=== PATIENT | female | born 1975 | race African-American/Black ===

== ENCOUNTER 2016-08-22 00:49 | Observation (INO) ==
[2016-08-22] MEDS ORDERED: ENOXAPARIN 100 MG/ML SYRINGE SUBCUT STA (01:15)
[2016-08-22] MEDS ORDERED: NITROGLYCERIN 2% OINT 1 INCH/GM PACK TOP STA (01:15)
[2016-08-22] MEDS ORDERED: MORPHINE 2 MG/1 ML SYRINGE IV STA (01:15)
[2016-08-22] MEDS ORDERED: ASPIRIN 325 MG TABLET PO STA (01:15)
[2016-08-22] MEDS ORDERED: ONDANSETRON 4 MG/2 ML VIAL IV STA (01:15)
[2016-08-22] MEDS ORDERED: SODIUM CHLORIDE 0.9% 500 ML IV STA (01:15)
--- NOTE | 2016-08-22 01:19 | EKG Report ---
Stationary ECG Study [facility] ER Test Date: 08/22/2016 12:57:29 AM Pat Name: LINCOLN TARANGO Department: Room: Gender: F Table Worker Packager: Delores : 1975 Requested by: Lg Handy Order Number: [id number] Reading MD: LON NIETO Intervals [place] Rate: 87 P: 62 UT: 142 QRS: 47 QRSD: 67 T: 56 QT: 328 QTc: 372 Interpretive Statements SINUS RHYTHM Electronically Signed On 08-22-16 04:11:34 SOCIAL SCIENTIST by LON NIETO [email or web address]
[2016-08-22] MEDS ORDERED: NITROGLYCERIN 2% OINT 1 INCH/GM PACK TOP ONE (01:28)
[2016-08-22] MEDS ORDERED: ENOXAPARIN 80 MG/0.8 ML SYRINGE SUBCUT ONE (01:29)
[2016-08-22] MEDS ORDERED: ONDANSETRON 4 MG/2 ML VIAL ONE (01:29)
[2016-08-22] MEDS ORDERED: MORPHINE 2 MG/1 ML SYRINGE ONE (01:29)
[2016-08-22] MEDS ORDERED: ASPIRIN 325 MG TABLET ONE (01:29)
[2016-08-22 01:43] LABS: PT Patient Result 10.5 SECS
[2016-08-22 01:46] LABS: Basophils # 0.1 10*3/uL (0.0-0.2); Basophils % 1.1 % (0.0-0.8); Eosinophils # 0.1 10*3/uL (0.0-0.87); Eosinophils % 2.6 % (0.00-10.9); Hematocrit 37.5 VOL% (35.7-47.0); Hemoglobin 12.2 GM/DL (12.0-16.0); Immature Granulocytes % 0.2 %; Immature Granulocytes Absolute 0.01 #; Lymphocytes # 1.9 10*3/uL (1.4-4.0); Lymphocytes % 42.3 % (21.3-54.2); Mean Corpuscular HGB Conc 32.5 GM/DL (32-36); Mean Corpuscular Hemoglobin 28 PG (27-34); Mean Corpuscular Volume 85.6 FL (87-102); Mean Platelet Volume 10.8 FL (9.6-12.0); Monocytes # 0.5 10*3/uL (0.11-0.8); Monocytes % 11.1 % (1.7-12.7); Neutrophils % 42.7 % (38.7-73.9); Platelet Count 211 10*3/uL (130-400); Red Blood Count 4.38 10*6/uL (3.8-5.5); Red Cell Distribution Width 13.3 % (9.3-17.3); White Blood Count 4.6 10*3/uL (4.5-13.71)
--- NOTE | 2016-08-22 01:47 | Emergency Department Note ---
IJavi Sierra, am scribing for, and in the presence of, Lg Handy MD 01:12. Ole Peacock Robert M, MD, personally performed the services described in this documentation, ascribed by Bridgett Caldwell in my presence, and it is both accurate and complete . Arrival - Arrival ED Nursing Triage Note: C/O SOB, left arm numbness, and chest discomfort starting yesterday. Mode of Arrival: Ambulatory Limitations: No Limitations Source: Patient - History of Present Illness Onset (ago): day(s) Consistency: constant Severity: mild Severity scale (1-10): 2 Quality: sharp, other <Lg Handy - Last Filed: 08/22/16 01:49> <Marshall Werner - Last Filed: 08/22/16 02:24> - Arrival Chief Complaint: Shortness of Breath Stated Complaint: shallow breathing heaviness in cheast area numb - History of Present Illness HPI Narrative: Pt is a 40 y/o female that came to the ED with c/o SOB, left arm numbness, and chest pain that began yesterday. Pt states left arm has a funny feeling. Pt denies fever or heart problems. Pt reports sxs have been constant the last 24 hours with no change. No other complaints/pain in ED. (Bridgett Caldwell) Pt is a 40 y/o female that came to the ED with c/o SOB, left arm numbness, and chest pain that began yesterday. Pt states left arm has a funny feeling. Pt denies fever or heart problems. Pt reports sxs have been constant the last 24 hours with no change. No other complaints/pain in ED. (Lg Handy) Allergies/Adverse Reactions: Allergies Allergy/AdvReac Type Severity Reaction Status Date / Time No Known Allergies Allergy Verified 08/22/16 00:53 Home Medications: Home Medications Medication Instructions Recorded Confirmed Type Cholecalciferol (Vitamin D3) 2,000 unit PO BID 05/27/15 08/22/16 History [Vitamin D3] PHENobarbital [Phenobarbital] 64.8 mg PO BEDTIME 05/27/15 08/22/16 History lamoTRIgine [LaMICtal ODT Tab] 100 mg PO BID 05/27/15 08/22/16 History Ibuprofen Tab [Motrin Tab] 800 mg PO TID #20 tablet 09/16/15 08/22/16 Rx Ondansetron Odt Tab [Zofran Odt] 4 mg PO Q6H #15 tablet 08/22/16 Rx Pantoprazole Tab [Protonix Tab] 40 mg PO DAILY #14 tablet 08/22/16 Rx Review of System - Review of System 12 point system: reviewed and no additional remarkable complaints except as stated - Review of System Constitutional: Absent: chills, fever Respiratory: Absent: cough, respiratory distress Cardiovascular: Present: chest pain, dyspnea on exertion. Absent: palpitations Gastrointestinal: Absent: abdominal pain, nausea, vomiting, diarrhea Musculoskeletal: Present: arm pain (left arm funny feeling). Absent: back pain , leg pain, neck pain Skin: Absent: rash Neurological: Present: numbness (left arm). Absent: headache, confusion Psychiatric: Absent: anxiety <Lg Handy Jordi - Last Filed: 08/22/16 01:49> Medical,Surgical,& Family Hx - Medical History Neurology: History of: Seizures - Social History Smoking Status: Never smoker Frequency of Alcohol Use: None Type of Drug Use: None <OleLg Bacon - Last Filed: 08/22/16 01:49> Exam - General General appearance: alert, in no apparent distress - Head Head exam: Present: atraumatic, normocephalic - Eye Eye exam: Present: PERRL, EOMI - ENT ENT exam: Present: mucous membranes moist. Absent: mucous membranes dry - Neck Neck exam: Present: full ROM. Absent: tenderness - Chest Chest inspection: Present: symmetric chest wall rise. Absent: tenderness - Respiratory Respiratory exam: Present: normal lung sounds bilaterally. Absent: respiratory distress - Cardiovascular Cardiovascular exam: Present: regular rate, normal rhythm, normal heart sounds - Abdominal Exam Abdominal exam: Present: soft. Absent: tenderness - Extremities Exam Extremities exam: Present: full ROM. Absent: tenderness, pedal edema - Back Exam Back exam: Present: full ROM. Absent: tenderness - Neurological Exam Neurological exam: Present: alert, oriented X3, CN II-XII intact. Absent: motor sensory deficit - Psychiatric Psychiatric exam: Present: normal affect, normal mood - Skin Skin exam: Present: warm, dry <Lg Handy - Last Filed: 08/22/16 01:49> Vital Signs: Vital Signs Temperature 97.4 F L 08/22/16 00:54 Pulse Rate 81 08/22/16 00:54 Respiratory Rate 18 08/22/16 00:54 Blood Pressure 139/82 08/22/16 00:54 O2 Sat by Pulse Oximetry 100 08/22/16 00:54 (Bridgett Caldwell) (Lg Handy) (Marshall Werner) Course - Reevaluation(s) Time: 01:45 <Lg Handy - Last Filed: 08/22/16 01:49> <Marshall Werner - Last Filed: 08/22/16 02:24> Course Narrative: I took over the care of this patient at 2 a.m. on 08/22/[address] Handy. She presented to the ER with a history of about 8-10 hours of substernal chest pain with shortness of breath and it eventually began to radiate to her left arm. She is not a smoker and she does not have diabetes. She does have a strong family history with a brother who of a massive heart attack at the age of 39. The patient did not get any relief with GI cocktail and Protonix. She did have a normal EKG and normal troponin but because of her family history and her symptoms I discussed her presentation with the hospitalist health commissioner who agreed to see her to evaluate her for admission. (Marshall Werner) - Reevaluation(s) Reevaluation #1: Dr. Marshall Major will discharge patient if labs remained normal. (Lg Handy) Results - Labs CBC & BMP: 08/22/16 01:23 - EKG EKG results: interpreted by JUAN LUIS WELCH, sinus rhythm <Lg Handy - Last Filed: 08/22/16 01:49> - Labs CBC & BMP: 08/22/16 01:23 08/22/16 01:23 <Marshall Werner - Last Filed: 08/22/16 02:24> Disposition Case discussed with: patient Time of Disposition: 01:46 <Lg Handy - Last Filed: 08/22/16 01:49> Case discussed with: patient Time of Disposition: 02:24 <Marshall Werner - Last Filed: 08/22/16 02:24> Clinical Impression: Acute chest pain Disposition: Still a Patient Condition: Stable Instructions: Chest Pain (ED) Prescriptions: Ondansetron Odt Tab [Zofran Odt] 4 mg PO Q6H #15 tablet Pantoprazole Tab [Protonix Tab] 40 mg PO DAILY #14 tablet New Prescriptions: Rx's Medication Instructions Recorded Ondansetron Odt Tab [Zofran Odt] 4 mg PO Q6H #15 tablet 08/22/16 Pantoprazole Tab [Protonix Tab] 40 mg PO DAILY #14 tablet 08/22/16 (Marshall Werner)
[2016-08-22 01:51] LABS: Calcium 9.2 MG/DL (8.5-10.1); Osmolality,Calculated 286.8 MOS/KG (273-304); Potassium 3.8 MMOL/L (3.5-5.1)
--- NOTE | 2016-08-22 03:04 | Hospitalist History & Physical ---
Assessment and Plan (1) History of seizure disorder Status: Acute Current Visit: Yes (2) Acute chest pain Status: Acute Assessment and plan: Plan for this patient #1 admit the patient to our service #2 telemetry bed #3 cardiology consult #4 lipid panel #5 cardiac enzymes #6 home meds as appropriate Current Visit: Yes History of Present Illness Chief complaint: chest pain History of present illness: Ms. Stafford is a 40 year old female past medical history significant for seizure disorder who was in normal state of health till Sunday. Patient reports intermittent chest pain. Originally it seem like it was involving her esophagus. But later she developed a tightness sensation in her chest. Was a pressure sensation she described it. And when her shoulder went numb she got very concerned about this pain. She had a brother who recently passed at age 39 with a heart attack. Patient got concerned that her sensation that she was feeling was her heart so she came up to our hospital further evaluation. Initial workup has been negative. I was consulted to admit the patient. Patient denies diaphoresis but she does feel a little short winded when she lays back. She did feel a little bit dizzy this morning. Home Medications Medication Instructions Recorded Confirmed Type Cholecalciferol (Vitamin D3) 2,000 unit PO BID 05/27/15 08/22/16 History [Vitamin D3] PHENobarbital [Phenobarbital] 64.8 mg PO BEDTIME 05/27/15 08/22/16 History lamoTRIgine [LaMICtal ODT Tab] 100 mg PO BID 05/27/15 08/22/16 History Ibuprofen Tab [Motrin Tab] 800 mg PO TID #20 tablet 09/16/15 08/22/16 Rx Ondansetron Odt Tab [Zofran Odt] 4 mg PO Q6H #15 tablet 08/22/16 Rx Pantoprazole Tab [Protonix Tab] 40 mg PO DAILY #14 tablet 08/22/16 Rx Allergies Allergy/AdvReac Type Severity Reaction Status Date / Time No Known Allergies Allergy Verified 08/22/16 00:53 Medical,Surgical,& Family Hx - Medical History Neurology: History of: Seizures - Surgical History Surgical History: noncontributory - Family History Family History: Reports;: Family Heart Disease (early onset) - Social History Smoking Status: Never smoker Frequency of Alcohol Use: None Type of Drug Use: None 12 point system: reviewed and no additional remarkable complaints except as stated Exam - Constitutional Vitals: Period Temp Pulse Resp BP Sys/Centeno Pulse Ox Last 24 Hr 97.4 F-97.4 F 79-81 18-18 139-139/82-82 100 - General General appearance: alert, in no apparent distress - Head Head exam: Present: atraumatic, normocephalic - Eye Eye exam: Present: PERRL, EOMI - ENT ENT exam: Present: mucous membranes moist. Absent: mucous membranes dry - Neck Neck exam: Present: full ROM. Absent: tenderness - Chest Chest inspection: Present: symmetric chest wall rise. Absent: tenderness - Respiratory Respiratory exam: Present: normal lung sounds bilaterally. Absent: respiratory distress - Cardiovascular Cardiovascular exam: Present: regular rate, normal rhythm, normal heart sounds - Abdominal Exam Abdominal exam: Present: soft. Absent: tenderness - Extremities Exam Extremities exam: Present: full ROM. Absent: tenderness, pedal edema - Back Exam Back exam: Present: full ROM. Absent: tenderness - Neurological Exam Neurological exam: Present: alert, oriented X3, CN II-XII intact. Absent: motor sensory deficit - Psychiatric Psychiatric exam: Present: normal affect, normal mood - Skin Skin exam: Present: warm, dry Results - Labs CBC & BMP: 08/22/16 01:23 08/22/16 01:23
[2016-08-22] MEDS ORDERED: ONDANSETRON 4 MG/2 ML VIAL IV PRN (03:08)
[2016-08-22] MEDS ORDERED: MORPHINE 2 MG/1 ML SYRINGE IV PRN (03:08)
[2016-08-22] MEDS: NITROGLYCERIN 2% OINT 1 INCH/GM PACK TOP SCH ×3 (05:18→17:58)
[2016-08-22 05:43] LABS: Risk Ratio 2.71
--- NOTE | 2016-08-22 07:11 | EKG Report ---
Stationary ECG Study [facility] Test Date: 08/22/2016 7:10:22 AM Pat Name: LINCOLN TARANGO Department: Room: 266 Gender: F Respiratory Therapy Aide: FAVIOLA : 1975 Requested by: Jimi Ybarra Order Number: [id number] Reading MD: JEANINE LA Intervals [place] Rate: 64 P: 67 AR: 173 QRS: 31 QRSD: 69 T: 33 QT: 368 QTc: 377 Interpretive Statements SINUS RHYTHM Electronically Signed On 08-22-16 13:38:51 CLOTH CHECKER by JEANINE LA [id number]
--- NOTE | 2016-08-22 07:42 | XRay Report ---
Exam: XR chest 1V portable Indication: Chest pain, substernal with radiation to left arm Comparison study: 09/15/15 Findings: The heart, mediastinum and bony structures are stable from prior. There is no focal consolidation, pneumothorax or pleural effusion identified. Impression: No acute cardiopulmonary process. No significant change from prior. PROCEDURE INTERPRETED AT [facility] DEPARTMENT OF RADIOLOGY Final Report Signed by: Kalen Ray
[2016-08-22] MEDS ORDERED: ENOXAPARIN 40 MG/0.4 ML SYRINGE SUBCUT SCH (09:00)
[2016-08-22] MEDS ORDERED: lamoTRIgine 100 MG TABLET PO SCH (09:00)
[2016-08-22] MEDS ORDERED: ASPIRIN EC 325 MG TABLET PO SCH (09:00)
[2016-08-22] MEDS ORDERED: CHOLECALCIFEROL 1,000 UNIT TABLET PO SCH (09:00)
[2016-08-22] MEDS ORDERED: MAGNESIUM SULF RIDER 2 GM in PREMIX 1 EACH IV PRN (09:02)
[2016-08-22] MEDS ORDERED: POTASSIUM CHLORIDE RIDER 10 MEQ in PREMIX 1 EACH IV PRN (09:02)
[2016-08-22] MEDS ORDERED: DIAZEPAM 5 MG TABLET PO ONE (09:02)
[2016-08-22] MEDS ORDERED: diphenhydrAMINE CAP 25 MG CAPSULE PO ONE (09:02)
--- NOTE | 2016-08-22 09:02 | Cardiology Consult Note ---
Elías Peacock Lauren, RN, am scribing for, and in the presence of, Jimi Mcdonald MD 08:59. Assessment and Plan - Time spent with patient Time spent with patient: Greater than 30 minutes (1) Chest pain Status: Acute Assessment and plan: Will continue to cycle cardiac biomarkers and ECG's. Thust far, her troponins have been negative and ECG's unremarkable. Because her family history of sudden and has been told it was a myocardial infarction nothing with her symptomatology she should have definitive diagnosis will cart catheterization. Current Visit: Yes (2) History of seizure disorder Status: Acute Assessment and plan: Currently well controlled on Lamictal and Phenobarbital. Denies seizure activity in the last few years. Current Visit: Yes History of Present Illness - Data of Consult Patient: new to practice Consult date: 08/22/16 Requesting Physician: Jimi Ybarra - Consult Narrative Reason for consult: chest pain History of present illness: Ms. Stafford is a 40 year old female who has never seen a it intern before. She has no significant medical history except for hiatal hernia and seizure disorder for which she takes Lamictal and Phenobarbital. She denies any personal history of hypertension, diabetes, dyslipidemia, or thyroid disorders. Risk factors include sedentary lifestyle and family history of heart disease. She had been in her usual state of health until yesterday when she reports she woke up feeling lightheaded and "just not quite right." Around 2PM, she was sitting up when she noticed some left shoulder and upper arm numbness and midsternal chest pressure. She reports it was not severe "pain " but more of an annoyance. She felt concerned since her brother, who was aged 39, was found 2 weeks ago from what was believed to be a heart attack. She tells me she has had some chest pressure the last couple days but she only noticed it while laying flat at night. She has had to sleep on 2 pillows to be comfortable. She also reports feeling like she may have some acid reflux coming up into her throat at times. She reports mild dyspnea on exertion but reports she does not become so short of breath as to require frequent rest periods. She denies exertional chest pain, palpitations, syncope, dizziness, recent fever or chils, nausea, vomiting, diarrhea, constipation, melena, hematochezia, painful inspiration. Of note, she denies usage of medication for reflux, but reports using Motrin PRN and Naproxen every month for severe menstrual cramps. She denies ever having had an exercise stress test or left heart catheterization. She does have a family history of hypertension and diabetes on her mother's side of the family. She is unsure of her paternal family's medical history. Thus far, her cardiac biomarkers have been negative and ECG is unremarkable. She has been in sinus rhythm with rates 50's-70's. With her brother having history of sudden and quality of some of her chest pain that she should have a car catheterization to evaluate for coronary disease. I discussed this procedure with the patient needing indications for procedure as well as high be carried out and the risk. I discussed cardiac catheterization and percutaneous coronary intervention with the patient. I reviewed with them the indications for the procedure and the basis of how the procedure would be carried out. I also reviewed with her the risk of the procedure which include but not necessarily limited to access site bleeding, bruising, pain, swelling or vascular injury that may require emergency vascular surgery, blood transfusion, or thrombin injection. Also discussed the possibility of stroke, myocardial infarction, arrhythmia which may require electrocardioversion, and the possibility of dye reaction that would require medical therapy. Also discussed the possibility of coronary artery injury, ruptured, closure or perforation that may require emergency bypass surgery. We also discussed the possibility of from a major complication. She voices understanding and agree to proceed. We'll discuss his case with Dr. Daley and scheduled for today. CC: Jimi Ybarra MD - Home Medications and Allergies Home Medications: Home Medications Medication Instructions Recorded Confirmed Type Cholecalciferol (Vitamin D3) 2,000 unit PO BID 05/27/15 08/22/16 History [Vitamin D3] PHENobarbital [Phenobarbital] 64.8 mg PO BEDTIME 05/27/15 08/22/16 History lamoTRIgine [LaMICtal ODT Tab] 100 mg PO BID 05/27/15 08/22/16 History Ibuprofen Tab [Motrin Tab] 800 mg PO TID #20 tablet 09/16/15 08/22/16 Rx Ondansetron Odt Tab [Zofran Odt] 4 mg PO Q6H #15 tablet 08/22/16 Rx Pantoprazole Tab [Protonix Tab] 40 mg PO DAILY #14 tablet 08/22/16 Rx Allergies/Adverse Reactions: Allergies Allergy/AdvReac Type Severity Reaction Status Date / Time No Known Allergies Allergy Verified 08/22/16 00:53 12 point system: reviewed and no additional remarkable complaints except as stated - Constitutional Constitutional: Absent: anorexia, chills, daytime sleepiness, excessive sweating , fatigue, fever(s), frequent falls, headache(s), increased appetite, lethargy, malaise, night sweats, stops breathing during sleep, weakness, weight gain, weight loss - EENT Eyes: Absent: blurry vision, diplopia, loss of vision Ears: Absent: decreased hearing, ear discharge, ear pain Nose, mouth and throat: Absent: dysphagia, epistaxis, headache(s), hoarseness, lip swelling, nasal congestion, neck mass, neck pain, sinus pressure, sore throat, throat swelling, tongue swelling, vertigo - Cardiovascular Cardiovascular: Present: as per HPI, chest pain at rest, dyspnea on exertion, radiating jaw, neck or arm pain, lightheadedness. Absent: chest pain with activity, claudication, diaphoresis, dyspnea, edema, orthopnea, palpitations, PND - Respiratory Respiratory: Present: as per HPI, dyspnea on exertion. Absent: cough, dyspnea, hemoptysis, wheezing, snoring, pain on inspiration, change in phlegm color - Gastrointestinal Gastrointestinal: Present: heartburn. Absent: abdominal pain, bloating, change in bowel habits, coffee ground emesis, constipation, cramping, diarrhea, dyspepsia, dysphagia, early satiety, fecal incontinence, hematemesis, hematochezia, loose stools, melena, nausea, odynophagia, vomiting, jaundice - Genitourinary Genitourinary: Absent: difficulty urinating, dysuria, flank pain, urinary frequency, urinary hesitancy, urinary incontinence - Musculoskeletal Musculoskeletal: Absent: arthralgias, back pain, joint swelling, limited range of motion, muscle cramps, muscle weakness, myalgias - Neurological Neurological: Absent: abnormal gait, abnormal speech, behavioral changes, confusion, convulsions, disequilibrium, dizziness, focal weakness, frequent falls, headache(s), memory loss, numbness, paresthesias, radicular pain, syncope , tremor(s) - Psychiatric Psychiatric: Absent: anxiety, confusion, depression, homicidal ideation, memory loss, panic attacks - Endocrine Endocrine: Absent: cold intolerance, fatigue, heat intolerance, polydipsia, polyphagia - Hematologic/Lymphatic Hematologic/Lymphatic: Absent: easy bleeding, easy bruising, lymphadenopathy Medical,Surgical,& Family Hx - Medical History Neurology: History of: Seizures - Family History Family History: Reports;: Family Diabetes (maternal side of family), Family Heart Disease (early onset), Family Hypertension (maternal side of family) Additional Family History: Brother with sudden . - Social History Smoking Status: Never smoker Frequency of Alcohol Use: None Type of Drug Use: None Marital Status: Single Functional capacity: independent ambulation Physical Examination Vital Signs Temp Pulse Resp BP Pulse Ox 97.4 F L 79 18 139/82 100 08/22/16 00:54 08/22/16 00:54 08/22/16 00:54 08/22/16 00:54 08/22/16 00:54 General: Present: Appears Well, No Apparent Distress HEENT: Present: Normocephaly, Mucus Membranes Moist Neck: Present: Supple Neck, Midline Trachea, No Masses, No Bruit, No Lymphadenopathy, No Thyromegaly Cardiac: Present: Reg Rate and Rhythm, Regular Rate, Regular Rhythm, No Murmur Lungs: Present: Normal Exam, Clear Ascult./Percussion, Normal Breath Sounds, No Wheeze, Rales, Rhonchi, No Wheezes, No Rales, No Rhonchi Neuro: Present: Motor Function Intact, Grossly Intact. Absent: Resting Tremor, Essential Tremor Abdomen: Present: Soft, Active Bowel Sounds, No Masses, No Pulsations/Bruits, Unremarkable, No Hepatosplenomegaly, Non-Tender Skin: Present: Clear. Absent: Rash Extremities: Present: No Clubbing, No Cyanosis, No Edema, Normal Upper Extr. Pulses, Normal Lower Extr. Pulses, No Phlebitic Signs Result/EKG - Labs CBC & BMP: 08/22/16 01:23 08/22/16 01:23 Lab Results: I have reviewed the past 24 hour labs (CBC and chemistries are normal. Troponin is normal.) Labs: Laboratory Results - last 24 hr 08/22/16 08/22/16 05:48 05:48 Troponin I < 0.015 < 0.015 - EKG EKG results: interpreted by me, sinus rhythm Specialty Discharge - Follow Up or Referrals - Discharge Medications New Ondansetron Odt Tab [Zofran Odt] 4 mg PO Q6H #15 tablet Pantoprazole Tab [Protonix Tab] 40 mg PO DAILY #14 tablet No Action Cholecalciferol (Vitamin D3) [Vitamin D3] 2,000 unit PO BID lamoTRIgine [LaMICtal ODT Tab] 100 mg PO BID PHENobarbital [Phenobarbital] 64.8 mg PO BEDTIME Ibuprofen Tab [Motrin Tab] 800 mg PO TID #20 tablet IHarry John Timothy, MD, personally performed the services described in this documentation, ascribed by Tayler Mckinley RN in my presence, and it is both accurate and complete .
--- NOTE | 2016-08-22 09:25 | EKG Report ---
Stationary ECG Study [facility] Test Date: 08/22/2016 9:24:10 AM Pat Name: LINCOLN TARANGO Department: Room: 266 Gender: F Program Development Manager: FAVIOLA : 1975 Requested by: Jimi Ybarra Order Number: [id number] Reading MD: JEANINE LA Intervals [place] Rate: 73 P: 63 MO: 167 QRS: 29 QRSD: 74 T: 48 QT: 356 QTc: 382 Interpretive Statements SINUS RHYTHM WITH SINUS ARRHYTHMIA POSSIBLE LEFT ATRIAL ENLARGEMENT LOW QRS VOLTAGE IN PRECORDIAL LEADS Electronically Signed On 08-22-16 13:41:32 MEAT CUTTING BLOCK REPAIRER by JEANINE LA [id number]
[2016-08-22] MEDS ORDERED: SODIUM CHLORIDE 0.9% 1,000 ML IV SCH (09:30)
[2016-08-22] MEDS ORDERED: HEPARIN/NACL 0.9% 2 UNITS/ML 1,000 ML IV ONE (10:00)
[2016-08-22] MEDS ORDERED: MIDAZOLAM 2 MG/2 ML VIAL ONE (10:12)
[2016-08-22] MEDS ORDERED: HYDROmorphone 2 MG/1 ML VIAL ONE (10:12)
[2016-08-22] MEDS ORDERED: LIDOCAINE 1% 20 ML VIAL ONE (10:14)
--- NOTE | 2016-08-22 11:05 | History and Physical Update ---
Sedation H&P Update - History and Physical H&P was reviewed, the patient examined and there: are no changes in the patients condition since last H&P was completed. - Dictation Physical: refer to H&P completed by admitting physician - Physical Exam Mental Status: alert and oriented Heart: regular rate and rhythm Lung: clear to auscultation Abdomen: within normal limits Vitals: within normal limits - Sedation Plan for Sedation: moderate Patient Consent: Procedure disscussed with patient and patinet has consented., Risks and benefits were discussed with patient,including infection,, bleeding, injury to surrounding structures, seizure, temporary nerve, Patient understands and accepts potential risks/benefits and agrees to, proceed. ASA Class: II Airway Assessment: Class II: Soft palate, uvula, fauces visible
[2016-08-22] MEDS ORDERED: ZALEPLON 5 MG CAPSULE PO PRN (11:24)
--- NOTE | 2016-08-22 11:24 | Cardiac Catheterization ---
Date of Procedure:: 08/22/16 Pre-op Diagnosis: Chest pain Post-op diagnosis: other (Noncardiac chest pain patent coronaries) Procedure: Cardiac catheterization procedure note #1 left heart catheterization #2 selective coronary angiography #3 left ventriculography Omnipaque was used for the procedure I description of procedure Following sterile preparation and draping of the right groin, local anesthesia was achieved by infiltration with 1% Xylocaine. Using a Cook needle the right femoral artery was cannulated and a #6 sheath was inserted. A 6 [place] pigtail catheter was introduced and advanced retrograde across aortic valve into the left ventricle and the end-diastolic pressure was recorded. Left ventriculography was performed in the SALAZAR projection using 24 cc of contrast material. A pullback recording is made across the aortic valve. The pigtail catheter change for a 6 [place] left Graham catheter and left coronary angiography was performed in SALAZAR and BANGLADESHI projections. The catheter change for a 6 [place] right Amplatz catheter and right coronary angiography was performed in the BANGLADESHI projection only. The catheter and sheath were then removed and hemostasis was achieved with a minx percutaneous closure device with prompt cessation of bleeding and prompt return of the femoral and foot pulses. No complications ensued. The patient was transported back to the telemetry floor in stable condition. II hemodynamic data Aortic pressure 135/82,000,097 LV 135/10 III selective coronary angiography The left main trunk is widely patent and trifurcates. The LAD is a large vessel wraps around the apex. It is widely patent throughout its course. 2 diagonal branches are patent. The circumflex system is patent. The dominant coronary artery is normal in size course and distribution. IV left ventriculography Ejection fraction 60%. No wall motion abnormalities. No mitral regurgitation. V conclusions #1 normal LVEDP 10 #2 ejection fraction 60% #3 no mitral regurgitation #4 no aortic valve gradient #5 widely patent coronary arteries disposition The patient should be reassured that her recent chest pain is not cardiac in nature. She has widely patent coronary arteries and normal ventricular function.. Risk factor modification recommended. Implants: No implants Anesthesia: moderate conscious sedation Surgeon / Physician: Joe Daley Estimated blood loss: minimal Specimens: none sent Condition: stable Disposition: floor - Medications / Follow-up New Prescriptions: Ondansetron Odt Tab [Zofran Odt] 4 mg PO Q6H #15 tablet Pantoprazole Tab [Protonix Tab] 40 mg PO DAILY #14 tablet
--- NOTE | 2016-08-22 11:47 | Discharge Summary ---
Hospital Course - Hospital Course Hospital Course: Ms. Stafford is a 40 year old female past medical history significant for seizure disorder who was in normal state of health till Sunday. Patient reports intermittent chest pain. Originally it seem like it was involving her esophagus. But later she developed a tightness sensation in her chest. Was a pressure sensation she described it. And when her shoulder went numb she got very concerned about this pain. She had a brother who recently passed at age 39 with a heart attack. Patient got concerned that her sensation that she was feeling was her heart so she came up to our hospital further evaluation. Initial workup has been negative. I was consulted to admit the patient. Patient denies diaphoresis but she does feel a little short winded when she lays back. She did feel a little bit dizzy this morning. Patient was taken to the heart labor mediator secondary to the sudden of her younger brother. The results of her heart cath were negative. Patient's met her maximum benefit from this hospitalization we'll discharge her home after her heart bed rest is complete. She can follow-up as needed with the [facility] - Time spent with patient Time with patient DS: Less than 30 minutes Diagnosis - Discharge Diagnosis (1) History of seizure disorder Status: Acute (2) Acute chest pain Status: Acute Specialty Discharge - Follow Up or Referrals - Discharge Medications New Ondansetron Odt Tab [Zofran Odt] 4 mg PO Q6H #15 tablet Pantoprazole Tab [Protonix Tab] 40 mg PO DAILY #14 tablet No Action Cholecalciferol (Vitamin D3) [Vitamin D3] 2,000 unit PO BID lamoTRIgine [LaMICtal ODT Tab] 100 mg PO BID PHENobarbital [Phenobarbital] 64.8 mg PO BEDTIME Ibuprofen Tab [Motrin Tab] 800 mg PO TID #20 tablet Discharge Plan - Discharge Data Disposition: Disch To Home/Self Care Condition at Discharge: Stable Discharge Diet: advance to your usual diet Activity: resume usual activities as tolerated Hygiene: no restrictions - Discharge Medications New Ondansetron Odt Tab [Zofran Odt] 4 mg PO Q6H #15 tablet Continue Cholecalciferol (Vitamin D3) [Vitamin D3] 2,000 unit PO BID lamoTRIgine [LaMICtal ODT Tab] 100 mg PO BID PHENobarbital [Phenobarbital] 64.8 mg PO BEDTIME Ibuprofen Tab [Motrin Tab] 800 mg PO TID #20 tablet Pantoprazole Tab [Protonix Tab] 40 mg PO DAILY #30 tablet - Follow Up or Referral - Forms/Instructions Instructions: Chest Pain (ED) Additional Discharge Instructions: Follow-up as needed with the [facility] Exam - Constitutional Vitals: Period Temp Pulse Resp BP Sys/Centeno Pulse Ox Last 24 Hr 97.5 F-97.6 F 58-74 16-18 110-133/64-84 97-100 Unchanged from previous exam earlier today Discharge Results Procedures and tests throughout hospitalization: Pending Orders 08/22/16 09:48 CL heart Routine 08/23/16 04:00 Basic Metabolic Panel IN AM Labs on day of discharge: Labs from last 24 hours 08/22/16 08/22/16 08/22/16 09:13 05:48 05:48 Troponin I < 0.015 < 0.015 < 0.015 DS: Provider Date of admission: 08/22/16 03:08 Primary care physician: . No PCP Attending physician on admission: Jimi Ybarra MD Consults: 08/22/16 11:24 Consult to Cardiac Rehabilitation [CONS] Routine Reason for Cardiac Rehabilitation: Risk Factor Modification Discharging clinician: Jimi Ybarra MD
[2016-08-22] MEDS ORDERED: ACETAMINOPHEN 325 MG TABLET PO PRN (13:48)
[2016-08-22 18:17] VITALS: BP 118/82
[2016-08-22] MEDS ORDERED: PHENobarbital 30 MG TABLET PO SCH (21:00)
== END 2016-08-22 18:57 | disposition home or self-care (01) ==
LOC: N.EDINP 00:49 → N.ED 00:49 → N.TELES 03:56
PROVIDERS: ADMIT Internal Medicine; ATTEND Internal Medicine
PROC: CLCCHCL (ICD-10-PCS; 2016-08-22 10:45)